=== PATIENT | female | born 1970 | race Two or more races ===

== ENCOUNTER 2020-02-25 09:17 | Emergency (ER) | payer MEDICARE, OTHER ==
[2020-02-25 09:25] VITALS: BP 128/72
[2020-02-25] MEDS ORDERED: KETOROLAC TROMETHAMINE 60 MG/2 ML SDV IM ONE (09:48)
[2020-02-25] MEDS ORDERED: DEXAMETHASONE SOD PHOS INJ 10 MG/1 ML VIAL IM ONE (09:48)
--- NOTE | 2020-02-25 09:49 | ER Document Report ---
ED General - General Chief Complaint: Leg Pain Stated Complaint: LEG PAIN/CRAMPING Time Seen by Provider: 02/25/20 09:36 Primary Care Provider: ANNIA MICHEL JR, DO [ACTIVE PROVISIONAL STAFF] - Follow up as needed Notes: CHIEF COMPLAINT: Exacerbation of chronic back pain for 2 months HPI: 49-year-old female who states that they recently moved from [place] to this area this week has been having worsening chronic back pain for 2 months. History of disc issues that were followed in [place] apparently. States she is on Cymbalta, Robaxin, Motrin, also had been on oxycodone and has been taking these medicines without relief of her back pain believe that she moved too much material or stuff. Pain is in the low back radiates down the left lateral leg to the foot. No incontinence of urine or bowel. Distribution of pain is similar to prior exacerbations of her back pain ROS: See HPI - all other systems were reviewed and are otherwise negative Constitutional: no fever GI: no vomiting, no diarrhea, no abdominal pain : no dysuria Integumentary: no rash Allergy: no hives Musculoskeletal: no extremity pain or swelling, positive back pain Neurological: no numbness/tingling, no weakness MEDICATIONS: I agree with the patient medications as charted by the RN. ALLERGIES: I agree with the allergies as charted by the RN. PAST MEDICAL HISTORY/PAST SURGICAL HISTORY: Reviewed and agree as charted by RN. SOCIAL HISTORY: Reviewed and agree as charted by RN. FAMILY HISTORY: No significant familial comorbid conditions directly related to patient complaint EXAM: Reviewed vital signs as charted by RN. CONSTITUTIONAL: Alert and oriented and responds appropriately to questions. Well-appearing; well-nourished HEAD: Normocephalic; atraumatic EYES: Conjunctivae clear, sclerae non-icteric ENT: normal nose; no rhinorrhea; moist mucous membranes NECK: Supple without meningismus CARD: symmetric distal pulses RESP: Normal chest excursion without splinting or tachypnea ABD/GI: Normal bowel sounds; non-distended; soft, non-tender, no rebound, no guarding; no palpable organomegaly or masses. BACK: The back appears normal and is tender to palpation in the left lower lumbar back into the upper gluteal region, there is no CVA tenderness EXT: Normal ROM in all joints; non-tender to palpation; no cyanosis, no effusions, no edema SKIN: Normal color for age and race; warm; dry; good turgor; no acute lesions noted NEURO: Moves all extremities equally; Motor and sensory function intact. Strength equal 5/5 bilateral lower extremities. Sensation intact and equal bilateral lower extremities. Straight leg raise is negative. No saddle anesthesia on exam. DTRs 2+ intact and equal bilateral lower extremities. PSYCH: The patient's mood and manner are appropriate. Grooming and personal hygiene are appropriate. MDM: 49-year-old female with history of chronic back pain presenting for exacerbation of chronic back pain. No incontinence of urine or bowel or saddle anesthesia suggesting cauda equina. I did review the patient on the [place] narcotics database and the [place] narcotics database she states that is where she came from and found no entries for her given name. We will write her a short course of pain medication we will give her steroids, Toradol here in the emergency department, she reports a history of gastric sleeve so is trying to limit her oral anti-inflammatories. Will be given referral to orthopedics for further management - Related Data Allergies/Adverse Reactions: haloperidol [From Haldol] Allergy (Verified 02/25/20 10:12) morphine Allergy (Verified 02/25/20 10:12) Sulfa (Sulfonamide Antibiotics) Adverse Reaction (Verified 02/25/20 10:12) Past Medical History - Social History Smoking Status: Unknown if Ever Smoked Family History: Reviewed & Not Pertinent Physical Exam - Vital signs Vitals: Temp 97.8 F 02/25/20 09:18 Course - Vital Signs Vital signs: Temp Pulse Resp BP Pulse Ox 97.7 F 70 18 128/72 H 95 02/25/20 09:24 02/25/20 09:24 02/25/20 09:24 02/25/20 09:24 02/25/20 09:24 Discharge - Discharge Clinical Impression: Acute exacerbation of chronic low back pain Condition: Stable Disposition: HOME, SELF-CARE Instructions: Chronic Back Pain ([facility]) Additional Instructions: Take the medication as prescribed, no driving if taking narcotics for pain. Follow-up with orthopedics or primary care provider for further evaluation and management of your ongoing back pain issues. Return for incontinence of urine or bowel Prescriptions: Dexamethasone [Decadron 4 Mg Tablet] 4 mg PO DAILY #7 tablet Oxycodone HCl/Acetaminophen [Percocet 5-325 mg Tablet] 1 tab PO Q4H PRN #15 tab PRN Reason: Referrals: ANNIA MICHEL JR, DO [ACTIVE PROVISIONAL STAFF] - Follow up as needed
== END 2020-02-25 11:00 | disposition home or self-care (01) ==
LOC: ER 09:17
DX: M54.5 Low back pain (principal); G89.29 Other chronic pain; M54.9 Dorsalgia, unspecified; M79.605 Pain in left leg; M79.672 Pain in left foot; Z79.899 Other long term (current) drug therapy; Z88.2 Allergy status to sulfonamides; Z88.8 Allergy status to other drugs, medicaments and biological substances; Z98.84 Bariatric surgery status
CPT/HCPCS: 99284; 96372; J1100

== ENCOUNTER → 2020-03-11 | Outpatient (CLI) | payer MEDICARE ==
--- NOTE | 2020-03-11 14:20 | RADIOLOGY REPORT (SQ) ---
EXAM DESCRIPTION: HIP RIGHT AP/LATERAL IMAGES COMPLETED DATE/TIME: 03/11/2020 2:04 pm REASON FOR STUDY: PAIN IN RIGHT HIP M25.551 PAIN IN RIGHT HIP COMPARISON: None. NUMBER OF VIEWS: Two views. TECHNIQUE: AP pelvis and additional frog legview of the right hip. LIMITATIONS: None. FINDINGS: MINERALIZATION: Normal. RIGHT HIP: No fracture or dislocation. No worrisome bone lesions. LEFT HIP: No fracture or dislocation. No worrisome bone lesions. Limited views. PUBIS AND ISCHIUM: No fracture. PELVIS: No fracture. SACRUM: No fracture or dislocation. No worrisome bone lesions. LOWER LUMBAR SPINE: No fracture or dislocation. No worrisome bone lesions. No significant disc disea se. SOFT TISSUES: No findings. OTHER: Battery pack and lead overlie the right aspect of the pelvis. IMPRESSION: NEGATIVE STUDY OF THE RIGHT HIP. NO RADIOGRAPHIC EVIDENCE OF ACUTE INJURY. TECHNICAL DOCUMENTATION: JOB ID: [id number] 2010 [employer]- All Rights Reserved Reading location - IP/workstation name: [email or web address]
== END ==
LOC: RAD 13:50
PROVIDERS: ATTEND Nurse Practitioner Acute Care
DX: M25.551 Pain in right hip (principal)

== ENCOUNTER → 2020-03-17 | Outpatient (CLI) | payer MEDICARE ==
--- NOTE | 2020-03-17 13:58 | RADIOLOGY REPORT (SQ) ---
EXAM DESCRIPTION: VENOUS UNILATERAL LOWER IMAGES COMPLETED DATE/TIME: 03/17/2020 1:49 pm REASON FOR STUDY: LLE SWELLING M79.89 OTHER SPECIFIED SOFT TISSUE DISORDERS COMPARISON: None. TECHNIQUE: Dynamic and static dailey scale and color images acquired of the left leg venous system. Se lected spectral images acquired with additional compression and augmentation maneuvers. The contralat eral common femoral vein and saphenofemoral junction were also imaged. Images stored on PACS. LIMITATIONS: None. FINDINGS: COMMON FEMORAL: Normal phasicity, compression and augmentation. No visualized echogenic ma terial on dailey scale. No defects on color images. FEMORAL: Normal compression and augmentation. No visualized echogenic material on dailey scale. No defe cts on color images. POPLITEAL: Normal compression, augmentation. No visualized echogenic material on dailey scale. No defec ts on color images. CALF VESSELS: Normal compression, augmentation. No visualized echogenic material on dailey scale. No de fects on color images. GSV and SSV: Normal compression, augmentation. No visualized echogenic material on dailey scale. No def ects on color images. ANY DEEP VENOUS INSUFFICIENCY: Not evaluated. ANY EVIDENCE OF POPLITEAL CYST: No. OTHER: No other significant finding. CONTRALATERAL COMMON FEMORAL VEIN AND SAPHENOFEMORAL JUNCTION: Normal phasicity, compression and augmentation. No visualized echogenic material on dailey scale. No de fects on color images. IMPRESSION: NO EVIDENCE DVT OR SVT IN THE LEFT LEG. TECHNICAL DOCUMENTATION: JOB ID: [id number] 2010 [employer]- All Rights Reserved Reading location - IP/workstation name: [email or web address]
== END ==
LOC: SP 12:53
PROVIDERS: ATTEND Nurse Practitioner Family
DX: M79.89 Other specified soft tissue disorders (principal)
CPT/HCPCS: 93971

== ENCOUNTER 2020-03-26 10:49 | Emergency (ER) | payer MEDICARE ==
[2020-03-26 13:04] LABS: APPEARANCE,URINE CLEAR; BILIRUBIN,URINE NEGATIVE (NEGATIVE); COLOR,URINE YELLOW; GLUCOSE, URINE NEGATIVE (NEGATIVE); KETONES,URINE NEGATIVE (NEGATIVE); LEUKOCYTE ESTERASE,URINE NEGATIVE (NEGATIVE); NITRITE,URINE NEGATIVE (NEGATIVE); PROTEIN,URINE NEGATIVE (NEGATIVE); URINE SPECIFIC GRAVITY 1.011; UROBILINOGEN,URINE NEGATIVE mg/dL (<2.0)
--- NOTE | 2020-03-26 13:14 | RADIOLOGY REPORT (SQ) ---
EXAM DESCRIPTION: CT PELVIS WITHOUT IMAGES COMPLETED DATE/TIME: 03/26/2020 12:38 pm REASON FOR STUDY: Attention right hip injury month ago continued cherie COMPARISON: None. TECHNIQUE: CT scan of the pelvis performed without intravenous or oral contrast. Images reviewed wi th soft tissue and bone windows. Reconstructed coronal and sagittal MPR images reviewed. All images stored on PACS. All CT scanners at this facility use dose modulation, iterative reconstruction, and/or weight based d osing when appropriate to reduce radiation dose to as low as reasonably achievable (ALARA). [facility]: Dose Right [facility]: CareDose [facility]: Dose Right [facility]: Teradose 4D [facility]: [employer] RADIATION DOSE: CT Rad equipment meets quality standard of care and radiation dose reduction techniq ues were employed. CTDIvol: 43.4 mGy. DLP: 1145 mGy-cm. mGy. LIMITATIONS: None. FINDINGS: PELVIC BONES: No acute fracture. No worrisome bone lesions. VISUALIZED SPINE: No acute findings. Lower lumbar facet arthropathy. HIP(S): No acute fracture or dislocation. Minimal bilateral hip osteoarthritic change. Joint space is relatively well-maintained. PELVIC SOFT TISSUES: Cystic lesion within the left adnexum measuring 4.4 cm. Additional small are ri ght adnexal cystic lesion measuring 2.8 cm. Decompressed urinary bladder. Scattered pelvic phleboli ths. Scattered colonic diverticula. EXTRAPELVIC SOFT TISSUES: No significant findings. OTHER: Sacral spinal stimulator device present within the right gluteal subcutaneous tissues. IMPRESSION: 1. No evidence of acute bony abnormality or other acute process. 2. Bilateral adnexal cystic lesions, largest on the left measuring 4.4 cm, likely benign cysts. No follow-up required if patient premenopausal. Postmenopausal patient should receive follow-up pelvic ultrasound in 3- 6 months to ensure stability/resolution. TECHNICAL DOCUMENTATION: JOB ID: [id number] Quality ID # [id number]: Final reports with documentation of one or more dose reduction techniques (e.g., Au tomated exposure control, adjustment of the mA and/or kV according to patient size, use of iterative reconstruction technique) 2010 [employer]- All Rights Reserved Reading location - IP/workstation name: [email or web address]
--- NOTE | 2020-03-26 14:30 | ER Document Report ---
ED Hip Pain/Injury - General Chief Complaint: Hip Pain Stated Complaint: FALL/RIGHT LEG PAIN Time Seen by Provider: 03/26/20 11:56 Primary Care Provider: KARISSA SIMON FNP [Primary Care Provider] - Follow up as needed Notes: CHIEF COMPLAINT: Right hip pain HPI: 49-year-old morbidly obese female with right hip pain for 1 month. Patient had a fall a month ago injured her hip. She states she has been seen in this emergency department has been seen by orthopedics has been seen by her primary care provider. States the orthopedic physicians are waiting to treat her based on prior records which they do not yet have. Patient states over the last 3 to 4 days she does have some pain across the pelvis no dysuria. No fevers. No vomiting. Patient states that she had been on pain management a year ago for ch ronic back pain is no longer under pain management. ROS: See HPI - all other systems were reviewed and are otherwise negative Constitutional: no fever Eyes: no drainage, no blurred vision ENT: no runny nose, no sore throat Cardiovascular: no chest pain Resp: no SOB, no cough GI: no vomiting, no diarrhea, positive pelvic pain : no dysuria Integumentary: no rash Allergy: no hives Musculoskeletal: no extremity pain or swelling Neurological: no numbness/tingling, no weakness MEDICATIONS: I agree with the patient medications as charted by the RN. ALLERGIES: I agree with the allergies as charted by the RN. PAST MEDICAL HISTORY/PAST SURGICAL HISTORY: Reviewed and agree as charted by RN. SOCIAL HISTORY: Reviewed and agree as charted by RN. FAMILY HISTORY: No significant familial comorbid conditions directly related to patient complaint EXAM: Reviewed vital signs as charted by RN. CONSTITUTIONAL: Alert and oriented and responds appropriately to questions. Well-appearing; well-nourished HEAD: Normocephalic; atraumatic EYES: PERRL; Conjunctivae clear, sclerae non-icteric ENT: normal nose; no rhinorrhea; moist mucous membranes; pharynx without lesions noted, no uvula edema or deviation, no tonsillar hypertrophy, phonation normal NECK: Supple without meningismus; non-tender; no cervical lymphadenopathy, no masses CARD: RRR; no murmurs, no clicks, no rubs, no gallops; symmetric distal pulses RESP: Normal chest excursion without splinting or tachypnea; breath sounds clear and equal bilaterally; no wheezes, no rhonchi, no rales, pulse oximetry 96% on room air not hypoxic ABD/GI: Morbidly obese, normal bowel sounds; non-distended; soft, mild tenderness across the suprapubic region on palpation , no rebound, no guarding; no palpable organomegaly or masses. BACK: The back appears normal and is non-tender to palpation, there is no CVA tenderness EXT: Normal ROM in all joints; mild tenderness across the right lateral hip region on palpation; no cyanosis, no effusions, no edema SKIN: Normal color for age and race; warm; dry; good turgor; no acute lesions noted NEURO: Moves all extremities equally; Motor and sensory function intact PSYCH: The patient's mood and manner are appropriate. Grooming and personal hygiene are appropriate. MDM: 49-year-old female presenting for hip pain for a month some pelvic pain over the last 3 to 4 days no fever. Patient had CT of the pelvis ordered via triage process shows no bony injury suggesting a fracture. She has bilateral ovarian cyst likely the cause of her pelvic pain. She is afebrile. I spoke with her at length. She has been on Percocet previously and pain management as well for chronic back issues. We will treat patient's pain. She is under the care of orthopedics currently she may call them tomorrow to schedule follow-up in their office for pain management issues. I will also refer her to [facility] for further evaluation of the ovarian cysts - Related Data Allergies/Adverse Reactions: haloperidol [From Haldol] Allergy (Verified 03/26/20 11:52) morphine Allergy (Verified 03/26/20 11:52) risperidone [From Risperdal] Allergy (Verified 03/26/20 11:52) Sulfa (Sulfonamide Antibiotics) Allergy (Verified 03/26/20 11:52) Home Medications: cymbalta, Klonipin, lithium, mertazapine, prozosin, losarten, levothyroxine, gabapentin, methocarbamol, vyvance. Past Medical History - Social History Smoking Status: Never Smoker Frequency of alcohol use: Rare Drug Abuse: None Family History: Reviewed & Not Pertinent Patient has homicidal ideation: No Physical Exam - Vital signs Vitals: Temp Pulse Resp BP Pulse Ox 98.1 F 70 16 122/64 98 03/26/20 10:53 03/26/20 10:53 03/26/20 10:53 03/26/20 10:53 03/26/20 10:53 Course - Vital Signs Vital signs: Temp Pulse Resp BP Pulse Ox 98.1 F 70 16 122/64 98 03/26/20 10:53 03/26/20 10:53 03/26/20 10:53 03/26/20 10:53 03/26/20 10:53 Discharge - Discharge Clinical Impression: Hip pain, Pelvic pain, Ovarian cyst, bilateral Condition: Stable Disposition: HOME, SELF-CARE Additional Instructions: Take the Percocet for pain as prescribed. Follow-up with [facility] for further evaluation of the ovarian cyst that were noted on your imaging studies today. There was no fracture noted on your imaging studies today. Call the orthopedic office in the morning to schedule further follow-up for pain management and evaluation of your hip discomfort Prescriptions: Oxycodone HCl/Acetaminophen [Percocet 5-325 mg Tablet] 1 tab PO Q4H PRN #15 tab PRN Reason: Referrals: KARISSA SIMON FNP [Primary Care Provider] - Follow up as needed
[2020-03-26] MEDS ORDERED: KETOROLAC TROMETHAMINE 60 MG/2 ML SDV IM ONE (14:31)
[2020-03-26] MEDS ORDERED: OXYCODONE-ACETAMINOPHEN 5-325 MG TABLET PO ONE (14:31)
[2020-03-26] MEDS ORDERED: ONDANSETRON 4 MG TAB.RAPDIS PO ONE (14:31)
[2020-03-26 15:05] VITALS: BP 143/64
--- NOTE | 2020-03-26 17:31 | ER Document Report ---
ED Medical Screen (RME) - General Chief Complaint: Hip Pain Stated Complaint: FALL/RIGHT LEG PAIN Time Seen by Provider: 03/26/20 11:56 Primary Care Provider: KARISSA SIMON FNP [Primary Care Provider] - Follow up as needed Mode of Arrival: Wheelchair Information source: Patient Notes: 49-year-old female presented to ED after she fell landing on her right leg. She states it jammed up her leg or pelvis. She does have a history of gastric sleeve hysterectomy gallbladder removal kidney stones stents pelvic floor stimulator. She is a former smoker drinks maybe once a year lives with family. She states her pain is a 4-5. I did order urine blood work CT abdomen pelvis and she was seen by another provider. I have greeted and performed a rapid initial assessment of this patient. A comprehensive ED assessment and evaluation of the patient, analysis of test results and completion of medical decision making process will be conducted by an additional ED providers. - Related Data Allergies/Adverse Reactions: haloperidol [From Haldol] Allergy (Verified 03/26/20 11:52) morphine Allergy (Verified 03/26/20 11:52) risperidone [From Risperdal] Allergy (Verified 03/26/20 11:52) Sulfa (Sulfonamide Antibiotics) Allergy (Verified 03/26/20 11:52) Home Medications: cymbalta, Klonipin, lithium, mertazapine, prozosin, losarten, levothyroxine, gabapentin, methocarbamol, vyvance. Past Medical History - Social History Frequency of alcohol use: Rare Drug Abuse: None - Past Medical History Cardiac Medical History: Reports: Hx Hypercholesterolemia, Hx Hypertension Denies: Hx Atrial Fibrillation, Hx Congestive Heart Failure, Hx Heart Attack Pulmonary Medical History: Denies: Hx Asthma, Hx Bronchitis, Hx COPD, Hx Pneumonia, Hx Tuberculosis Neurological Medical History: Reports: Hx Migraine. Denies: Hx Seizures Endocrine Medical History: Denies: Hx Diabetes Mellitus Type 1, Hx Diabetes Mellitus Type 2 Renal/ Medical History: Reports: Hx Kidney Stones. Denies: Hx End Stage Renal Disease GI Medical History: Reports: Hx Ulcer. Denies: Hx Gastroesophageal Reflux Disease, Hx Hiatal Hernia Musculoskeltal Medical History: Reports Hx Arthritis Psychiatric Medical History: Reports: Hx Bipolar Disorder, Hx Depression Denies: Hx Attention Deficit Hyperactivity Disorder, Hx Schizophrenia Past Surgical History: Reports: Hx Abdominal Surgery - gastric sleeve, Hx Cholecystectomy, Hx Hysterectomy Physical Exam - Vital signs Vitals: Temp Pulse Resp BP Pulse Ox 98.1 F 70 16 122/64 98 03/26/20 10:53 03/26/20 10:53 03/26/20 10:53 03/26/20 10:53 03/26/20 10:53 Course - Vital Signs Vital signs: Temp Pulse Resp BP Pulse Ox 98.9 F 67 20 143/64 H 95 03/26/20 15:04 03/26/20 15:04 03/26/20 15:04 03/26/20 15:04 03/26/20 15:04 Doctor's Discharge - Discharge Clinical Impression: Hip pain, Pelvic pain, Ovarian cyst, bilateral Condition: Stable Disposition: HOME, SELF-CARE Additional Instructions: Take the Percocet for pain as prescribed. Follow-up with [facility] for further evaluation of the ovarian cyst that were noted on your imaging studies today. There was no fracture noted on your imaging studies today. Call the orthopedic office in the morning to schedule further follow-up for pain management and evaluation of your hip discomfort Prescriptions: Oxycodone HCl/Acetaminophen [Percocet 5-325 mg Tablet] 1 tab PO Q4H PRN #15 tab PRN Reason: Referrals: KARISSA SIMON FNP [Primary Care Provider] - Follow up as needed
== END 2020-03-26 15:04 | disposition home or self-care (01) ==
LOC: ER 10:49
DX: N83.202 Unspecified ovarian cyst, left side (principal); N83.201 Unspecified ovarian cyst, right side; M25.551 Pain in right hip; M79.604 Pain in right leg; E78.00 Pure hypercholesterolemia, unspecified; I10 Essential (primary) hypertension; Z87.442 Personal history of urinary calculi
CPT/HCPCS: 99285; 96372; 81001; 72192; J1885; A9270 ×2; S0119

== ENCOUNTER 2020-06-15 08:00 | Day surgery (SDC) | payer MEDICARE ==
[~2020-06-15 08:00] MED LIST: PROPOFOL INJ 200 MG/20 ML VIAL IV ONE
--- NOTE | 2020-06-15 10:01 | Operative Report ---
Operative Report DATE OF SURGERY: 06/15/20 Operative Report: The risk, benefits and alternatives of the procedure including the risk of bleeding, perforation requiring surgery have been explained to the patient in detail and informed consent has been obtained. The patient is taken back to the endoscopy suite and placed in the left, lateral decubital position. Timeout was called. Propofol medication is administered. Rectal examination is done which did not reveal any masses, tears or fissures. An Olympus videoscope was introduced into the patient's rectum. The scope was then carefully advanced all the way to the cecum. The cecum was identified by the usual anatomical landmarks of the ileocecal valve as well as the appendiceal office. Photodocumentation is obtained. Scope was then sequentially pulled back via the various segments of the colon including the ascending colon, hepatic flexure, transverse colon, splenic flexure, descending colon and finally into the rectosigmoid portions of the colon. Retroflexion maneuver is performed. The risks benefits and alternatives of the procedure explained to the patient in detail and informed consent is obtained.A GIF Olympus video scope was inserted into the patient's mouth and hypopharynx, the esophagus is identified intubated and insufflated, the scope was then advanced through the esophagus stomach and duodenum ,retroflexion maneuver is done, the esophagus stomach and first and second portions of the duodenum examined PREOPERATIVE DIAGNOSIS: Change of bowel habits. Epigastric pain POSTOPERATIVE DIAGNOSIS: Rectal polyp status post biopsy. Right side colon inflammation status post biopsy. Diverticulosis without any evidence of diverticulitis. Gastritis status post biopsy rule out Helicobacter pylori OPERATION: Colonoscopy with biopsy. EGD with biopsy SURGEON: THIAGO GARCIA ANESTHESIA: LMAC TISSUE REMOVED OR ALTERED: As noted above. COMPLICATIONS: None. ESTIMATED BLOOD LOSS: None. INTRAOPERATIVE FINDINGS: As noted above. PROCEDURE: Patient tolerated the procedure well. No immediate postprocedure complications are noted. Patient is discharged in good condition. Discharge date 06/15/2020. Discharge diet: Regular. Discharge activity: Regular. 2 to 3-week follow-up to discuss findings. Patient is instructed to call the office or proceed to the emergency room should there be any further problems or questions. Depending on the pathology of the polyp consider 5-year surveillance colonoscopy.
[2020-06-15 10:10] VITALS: BP 102/60
== END 2020-06-15 10:15 | disposition home or self-care (01) ==
LOC: END 08:00
PROVIDERS: ATTEND Internal Medicine Gastroenterology
DX: K29.50 Unspecified chronic gastritis without bleeding (principal); K52.9 Noninfective gastroenteritis and colitis, unspecified; K62.1 Rectal polyp; Z87.891 Personal history of nicotine dependence; G47.33 Obstructive sleep apnea (adult) (pediatric); I10 Essential (primary) hypertension; K21.9 Gastro-esophageal reflux disease without esophagitis; K76.0 Fatty (change of) liver, not elsewhere classified; K57.30 Diverticulosis of large intestine without perforation or abscess without bleeding; Z98.84 Bariatric surgery status; Z90.49 Acquired absence of other specified parts of digestive tract; Z90.710 Acquired absence of both cervix and uterus; E07.9 Disorder of thyroid, unspecified; Z79.890 Hormone replacement therapy; G89.29 Other chronic pain; Z79.899 Other long term (current) drug therapy
CPT/HCPCS: 43239; 45380; 88305 ×2; 00813; J2704; 813